=== PATIENT | male | born 1940 | race Caucasian/White ===

== ENCOUNTER 2016-05-06 07:17 | Emergency (ER) | payer OTHER ==
--- NOTE | 2016-05-06 07:42 | UCPHY ---
H & P Patient Type: New Time Seen by Provider: 05/06/16 07:33 HPI/ROS: CHIEF COMPLAINT: Hypertension HISTORY OF PRESENT ILLNESS: The patient is a 75-year-old man with a history of hypertension who takes 2.5 mg amlodipine daily who comes to the emergency department because his blood pressure this morning is 170/90. He states that it has been gradually increasing over the last 2 weeks. He brought in a record. Typically he is 120/70. He does state that he has been eating more salt containing foods over the last few days and snacking more often. He denies having any chest pain or palpitations or shortness of breath . He does have a mild headache but states this is not unusual for him. He also had a mild sour stomach that improved with Tums. He states this is not unusual for him. He had a stress test last year that was negative. REVIEW OF SYSTEMS: Constitutional: denies: chills, fever, recent illness, recent injury EENTM: denies: blurred vision, double vision, nose congestion Respiratory: denies: cough, shortness of breath Cardiac: denies: chest pain, irregular heart rate, lightheadedness, palpitations Gastrointestinal/Abdominal: See HPI, denies: abdominal pain, diarrhea, nausea, vomiting, blood streaked stools Genitourinary: denies: dysuria, frequency, hematuria, pain Musculoskeletal: denies: joint pain, muscle pain Skin: denies: lesions, rash, jaundice, bruising Neurological: denies: headache, numbness, paresthesia, tingling, dizziness, weakness Hematologic/Lymphatic: denies: blood clots, easy bleeding, easy bruising Immunologic/allergic: denies: HIV/AIDS, transplant EXAM: GENERAL: Well-appearing, well-nourished and in no acute distress. HEAD: Atraumatic, normocephalic. EYES: Pupils equal round and reactive to light, extraocular movements intact, sclera anicteric, conjunctiva are normal. ENT: TMs normal, nares patent, oropharynx clear without exudates. Moist mucous membranes. NECK: Normal range of motion, supple without lymphadenopathy or JVD. LUNGS: Breath sounds clear to auscultation bilaterally and equal. No wheezes rales or rhonchi. HEART: Regular rate and rhythm without murmurs, rubs or gallops. ABDOMEN: Soft, nontender, normoactive bowel sounds. No guarding, no rebound. No masses appreciated. BACK: No CVA tenderness, no spinal tenderness, step-offs or deformities EXTREMITIES: Normal range of motion, no pitting or edema. No clubbing or cyanosis. NEUROLOGICAL: Cranial nerves II through XII grossly intact. Normal speech, normal gait. 5/5 strength, normal movement in all extremities, normal sensation PSYCH: Normal mood, normal affect. SKIN: Warm, dry, normal turgor, no visible rashes or lesions. Source: Patient, Family - Medical/Surgical History Hx Asthma: No Hx Chronic Respiratory Disease: No Hx Diabetes: No Hx Cardiac Disease: No Hx Renal Disease: Yes Other PMH: Renal cell cancer - Family History Significant Family History: Hypertension - Social History Smoking Status: Former smoker Alcohol Use: Sober Drug Use: None Constitutional: Initial Vital Signs Temperature (C) 36.6 C 05/06/16 07:43 Heart Rate 78 05/06/16 07:43 Respiratory Rate 18 05/06/16 07:43 Blood Pressure 188/80 H 05/06/16 07:43 O2 Sat (%) 97 05/06/16 07:43 O2 Delivery Mode Room Air O2 (L/minute) 97 Allergies/Adverse Reactions: No Known Allergies Allergy (Unverified 05/06/16 07:39) Home Medications: Medication Instructions Recorded Amlodipine Besylate 05/06/16 Clobetasol 0.05% 05/06/16 Flonase Nasal [place] 05/06/16 Multi-Day Vitamins 05/06/16 Omper 05/06/16 Probiotic 05/06/16 Medical Decision Making - Diagnostics EKG Interpretation: An EKG obtained and was read and documented in trace view. Please see trace view for full reading and report. Sinus rhythm, no acute ischemic changes or arrhythmias ED Course/Re-evaluation: 7:55 a.m. the patient's blood pressure is currently 140/70 without any intervention. He continues to be asymptomatic. His EKG is reassuring. He is eager to go as is his . They declined further intervention. They agreed to take a 2nd dose of amlodipine in the get home and continue to monitor his blood pressure from there. He is planning to travel today which we discussed and I feel is safe. Differential Diagnosis: Partial list of the Differential diagnosis considered include but were not limited to; hypertension, anxiety, arrhythmia and although unlikely based on the history and physical exam, I also considered acute coronary disease, PE, dissection, aneurysm. I discussed these differential diagnoses and the plan with the patient as well as the usual and expected course. The patient understands that the diagnosis is provisional and that in medicine we are not always correct and that further workup is often warranted. Usual and customary warnings were given. All of the patient's questions were answered. The patient was instructed to return to the emergency department should the symptoms at all worsen or return, otherwise to followup with the physician as we discussed. - Data Points Medications Given: Discontinued Medications Amlodipine Besylate (Norvasc) 2.5 mg PO EDNOW ONE Stop: 05/06/16 07:40 Last Admin: 05/06/16 07:57 Dose: Not Given Departure - Departure Disposition: Home, Routine, Self-Care Clinical Impression: Hypertension Qualifiers: Hypertension type: essential hypertension Qualifier Code: (I10) Essential ( primary) hypertension Condition: Fair Instructions: Hypertension (ED) Additional Instructions: Continue to monitor your blood pressure and follow up with Dr. Moore further management para Referrals: Luc Tracy MD [Primary Care Provider] - As per Instructions - PQRS PQRS Measurement: 134: Depression screening and followup, PRIME MD-PHQ2 (12 years and older) Over the last 2 weeks, how often have you been bothered by any of the following problems? 1. Feeling down, depressed, or hopeless? 2. Little interest or pleasure in doing things? Patient answered no to both 1 and 2 130: Documentation of medications. Reviewed all patient medications, doses, route and frequency. 226: Do you smoke? No. 47: 65 and older: Advanced care planning. Patient designates surrogate decision maker as spouse . Patient has advanced directive. 51: 18 years old and older with diagnosis of COPD, spirometry performance. Spirometry not performed; equipment not available. 52: 18 years old and older with COPD and symptoms of COPD or FEV1<60% predicted prescribed a B Agonist. Not applicable
--- NOTE | 2016-05-06 07:44 | CPEKG ---
Heart Rate: 68 RR Interval: 882 P-R Interval: 200 QRSD Interval: 92 QT Interval: 376 QTC Interval: 400 P [place]: 83 QRS [place]: 58 T Wave [place]: 83 EKG Severity - NORMAL ECG - EKG Impression: SINUS RHYTHM Electronically Signed By: Hemant Umanzor 06-May-2016 07:59:07
[2016-05-06 07:46] VITALS: RESP 18; TEMP 98; O2SAT 97
[2016-05-06 08:13] VITALS: BP 175/88; PULSE 75
== END 2016-05-06 08:09 | disposition home or self-care (01) ==
LOC: CED 07:17
DX: I10 Essential (primary) hypertension (principal)
CPT/HCPCS: 93005; G0463; 93010-PO; 99204-PO

== ENCOUNTER 2017-06-16 10:25 | Emergency (ER) | payer OTHER ==
--- NOTE | 2017-06-16 10:34 | CPEKG ---
Heart Rate: 57 RR Interval: 1053 P-R Interval: 188 QRSD Interval: 90 QT Interval: 392 QTC Interval: 382 P [place]: 68 QRS [place]: 67 T Wave [place]: 74 EKG Severity - NORMAL ECG - EKG Impression: SINUS RHYTHM Electronically Signed By: Hemant Umanzor 16-Jun-2017 10:42:14
[2017-06-16 10:35] VITALS: RESP 18; TEMP 99
[2017-06-16] MEDS ORDERED: ASPIRIN 81 MG CHEWABLE TAB PO ONE (10:38)
--- NOTE | 2017-06-16 10:41 | EDPHY ---
H & P Stated Complaint: c/o Lt arm pain X2 wks- denies trauma Time Seen by Provider: 06/16/17 10:31 HPI/ROS: CHIEF COMPLAINT: Left shoulder pain HISTORY OF PRESENT ILLNESS: Patient is a 76-year-old man with a history of hypertension and renal cancer who comes to the emergency department complaining of left shoulder pain. He was seeing his primary doctor this morning and complained of left shoulder pain anteriorly that radiated down his biceps and left forearm for the last 2 weeks. He states that the pain predominates in the morning and then resolved throughout the day. No shortness of breath. No chest pain. No diaphoresis. No nausea vomiting. He denies any cardiac history. He states that he did get a steroid injection in her shoulder 20 years ago but has not needed anything since. He cannot reproduce the pain with movement. It is not tender. He denies neck pain. He denies weakness. He denies hand symptoms. He denies any trauma or recent infections. Dr. Tracy called and requested he have some enzymes drawn. REVIEW OF SYSTEMS: Constitutional: denies: chills, fever, recent illness, recent injury EENTM: denies: blurred vision, double vision, nose congestion Respiratory: denies: cough, shortness of breath Cardiac: denies: chest pain, irregular heart rate, lightheadedness, palpitations Gastrointestinal/Abdominal: denies: abdominal pain, diarrhea, nausea, vomiting, blood streaked stools Genitourinary: denies: dysuria, frequency, hematuria, pain Musculoskeletal: See HPI Skin: denies: lesions, rash, jaundice, bruising Neurological: denies: headache, numbness, paresthesia, tingling, dizziness, weakness Hematologic/Lymphatic: denies: blood clots, easy bleeding, easy bruising Immunologic/allergic: denies: HIV/AIDS, transplant EXAM: GENERAL: Well-appearing, well-nourished and in no acute distress. HEAD: Atraumatic, normocephalic. EYES: Pupils equal round and reactive to light, extraocular movements intact, sclera anicteric, conjunctiva are normal. ENT: TMs normal, nares patent, oropharynx clear without exudates. Moist mucous membranes. NECK: Normal range of motion, supple without lymphadenopathy or JVD. LUNGS: Breath sounds clear to auscultation bilaterally and equal. No wheezes rales or rhonchi. HEART: Regular rate and rhythm without murmurs, rubs or gallops. ABDOMEN: Soft, nontender, normoactive bowel sounds. No guarding, no rebound. No masses appreciated. BACK: No CVA tenderness, no spinal tenderness, step-offs or deformities EXTREMITIES: Normal range of motion, no pitting or edema. No clubbing or cyanosis. NEUROLOGICAL: Cranial nerves II through XII grossly intact. Normal speech, normal gait. 5/5 strength, normal movement in all extremities, normal sensation PSYCH: Normal mood, normal affect. SKIN: Warm, dry, normal turgor, no visible rashes or lesions. Source: Patient Exam Limitations: No limitations - Medical/Surgical History Hx Asthma: No Hx Chronic Respiratory Disease: No Hx Diabetes: No Hx Cardiac Disease: No Hx Renal Disease: Yes Other PMH: Hypertension, Renal cell cancer left nephrectomy, Tuluremia with left lung node resection - Family History Significant Family History: No pertinent family hx - Social History Smoking Status: Former smoker Alcohol Use: Sober Drug Use: None Constitutional: Initial Vital Signs Temperature (C) 37.2 C 06/16/17 10:32 Heart Rate 62 06/16/17 10:32 Respiratory Rate 18 06/16/17 10:32 Blood Pressure 165/81 H 06/16/17 10:32 O2 Sat (%) 98 06/16/17 10:32 O2 Delivery Mode Room Air Allergies/Adverse Reactions: No Known Allergies Allergy (Unverified 05/06/16 07:39) Home Medications: Medication Instructions Recorded Amlodipine Besylate 05/06/16 Clobetasol 0.05% 05/06/16 Flonase Nasal [place] 05/06/16 Multi-Day Vitamins 05/06/16 Omper 05/06/16 Probiotic 05/06/16 Medical Decision Making - Diagnostics EKG Interpretation: An EKG obtained and was read and documented in trace view. Please see trace view for full reading and report. Sinus rhythm, no acute ischemic changes, similar to previous A repeat EKG obtained and was read and documented in trace view. Please see trace view for full reading and report. Sinus rhythm, no acute ischemic changes ED Course/Re-evaluation: The patient's initial coagulation labs were abnormal however we repeated with new blood and they are normal. There was much confusion in the lab about reordered the lab work. His troponin is negative and he continues to deny chest pain. His EKG is reassuring. We discussed staying for a repeat troponin and EKG and the patient agrees. Dr. Tracy had previously recommended a couple of serial enzymes and then he will follow up with him in the outpatient setting. 2:22 p.m. The patient remains asymptomatic. His repeat troponin and EKG are reassuring. He is very eager to go home. He will follow up with his primary for further testing. No weakness numbness or paralysis. No focal neurologic deficit. Differential Diagnosis: Partial list of the Differential diagnosis considered include but were not limited to; shoulder pain, radiculopathy, bursitis, arthritis, tendonitis and although unlikely based on the history and physical exam, I also considered acute coronary disease, PE, dissection pneumonia, peptic ulcer disease. I discussed these differential diagnoses and the plan with the patient as well as the usual and expected course. The patient understands that the diagnosis is provisional and that in medicine we are not always correct and that further workup is often warranted. Usual and customary warnings were given. All of the patient's questions were answered. The patient was instructed to return to the emergency department should the symptoms at all worsen or return, otherwise to followup with the physician as we discussed. - Data Points Laboratory Results: Laboratory Results 06/16/17 10:48 06/16/17 10:48 Medications Given: Discontinued Medications Aspirin (Aspirin) 324 mg PO EDNOW ONE Stop: 06/16/17 10:39 Last Admin: 06/16/17 11:02 Dose: 324 mg Departure - Departure Disposition: Home, Routine, Self-Care Clinical Impression: Left shoulder pain Qualifiers: Chronicity: unspecified Qualified Code(s): M25.512 - Pain in left shoulder Condition: Fair Instructions: Shoulder Pain (ED) Referrals: Luc Tracy MD [Primary Care Provider] - 1-2 days without fail
[2017-06-16 10:51] LABS: PLATELET COUNT 368 10^3/uL (150-400)
[2017-06-16 11:10] LABS: INR 3.05 (0.83-1.16); PROTIME(PATIENT) 30.7 SEC (12.0-15.0)
[2017-06-16 11:58] LABS: INR 1.03 (0.83-1.16); PROTIME(PATIENT) 13.4 SEC (12.0-15.0)
[2017-06-16 14:11] VITALS: BP 144/77; PULSE 67; O2SAT 95
--- NOTE | 2017-06-16 14:21 | CPEKG ---
Heart Rate: 55 RR Interval: 1091 P-R Interval: 188 QRSD Interval: 98 QT Interval: 424 QTC Interval: 406 P [place]: 66 QRS [place]: 45 T Wave [place]: 65 EKG Severity - NORMAL ECG - EKG Impression: SINUS RHYTHM Electronically Signed By: Hemant Umanzor 16-Jun-2017 14:25:06
== END 2017-06-16 14:28 | disposition home or self-care (01) ==
LOC: CED 10:25
DX: M25.512 Pain in left shoulder (principal); I10 Essential (primary) hypertension; Z85.528 Personal history of other malignant neoplasm of kidney; Z87.891 Personal history of nicotine dependence
CPT/HCPCS: 71046-PO; 80048-PO; 80076-PO; 83690-PO; 84484-PO; 85025-PO; 85378-PO; 85610-PO; 85730-PO

== ENCOUNTER → 2017-06-19 | Outpatient (CLI) | payer OTHER | LOC: CIMAGING 13:49 | PROVIDERS: ATTEND Internal Medicine | DX: M25.512 Pain in left shoulder (principal) | CPT/HCPCS: 73030-PO ==